=== PATIENT | female | born 1970 | race African-American/Black ===

== ENCOUNTER 2018-07-19 02:15 | Emergency (ER) | payer SELFPAY ==
--- NOTE | 2018-07-19 07:34 | RAD ---
3 views left ankle HISTORY: left ankle pain for 2 weeks. AP, lateral and oblique views left ankle obtained. 3 views left ankle demonstrates no evidence of left ankle fractures, subluxations or bony lesions. IMPRESSION: Unremarkable 3 views left ankle.
== END 2018-07-19 03:28 | disposition home or self-care (01) ==
LOC: ERS 02:15
DX: S93.402A Sprain of unspecified ligament of left ankle, initial encounter (principal); X50.9XXA Other and unspecified overexertion or strenuous movements or postures, initial encounter